=== PATIENT | male | born 1995 | race African-American/Black ===

== ENCOUNTER 2020-04-12 22:39 | Inpatient (IN) | payer MEDICAID ==
[~2020-04-12] VITALS: Ht 170.2 cm; Wt 80.9 kg
[2020-04-12 23:56] LABS: BASOPHILS % (AUTO) 0.6 % (0.0-2.0); EOSINOPHILS % (AUTO) 5.7 % (1.0-6.0); HEMATOCRIT 42.6 % (41-53); HEMOGLOBIN 14.5 g/dL (13.5-17.5); LYMPHOCYTES # (AUTO) 2.1 K/uL (1.0-4.8); LYMPHOCYTES % (AUTO) 33.1 % (22.0-44.0); MEAN CORPUSCULAR HEMOGLOBIN 30.5 pg (26.0-34.0); MEAN CORPUSCULAR VOLUME 90 fL (80-100); MONOCYTES # (AUTO) 0.5 K/uL (0.1-1.0); MONOCYTES % (AUTO) 7.8 % (2.0-9.0); NEUTROPHILS # (AUTO) 3.3 K/uL (1.8-7.7); NEUTROPHILS % (AUTO) 52.8 % (40.0-70.0); PLATELET COUNT (AUTO) 375 K/uL (150-450); RED BLOOD CELL COUNT(AUTO) 4.74 MIL/uL (4.50-5.90); RED CELL DISTRIBUTION WIDTH 13.3 % (11.5-14.5)
[2020-04-13 00:12] LABS: ANION GAP 10 mmol/L (8-16); CALCIUM, TOTAL 9.3 mg/dL (8.8-10.5); CARBON DIOXIDE 27 mmol/L (22-29); CHLORIDE 103 mmol/L (98-107); CREATININE 0.97 mg/dL (0.60-1.30); GLOMERULAR FILTR. RATE CALC > 60 mL/min (>60); GLUCOSE,RANDOM 83 mg/dL (70-110); POTASSIUM 3.6 mmol/L (3.5-5.1); SODIUM SERUM 140 mmol/L (136-145); UREA NITROGEN, BLOOD 16 mg/dL (7-18)
[2020-04-13 00:17] LABS: ALANINE AMINOTRANSFERASE 22 U/L (12-78); ALKALINE PHOSPHATASE 56 U/L (46-116); ASPARTATE AMINOTRANSFERASE 21 U/L (15-37); BILIRUBIN,TOTAL 0.5 mg/dL (0.1-1.0); TOTAL PROTEIN, SERUM 7.8 g/dL (6.4-8.2)
[2020-04-13 02:07] LABS: COVID AG,FIA SOURCE NASOPHARYNGEAL
[2020-04-13 05:00] VITALS: BP 107/67
[2020-04-13] MEDS ORDERED: ZOLPIDEM TARTRATE 10 MG TABLET PO PRN (05:45)
[2020-04-13] MEDS ORDERED: HALOPERIDOL 5 MG TABLET PO PRN (05:45)
[2020-04-13] MEDS ORDERED: MAGNESIUM HYDROXIDE SUSPENSION 30 ML UDCUP PO PRN (07:45)
[2020-04-13] MEDS ORDERED: MAG HYDROX/AL HYDROX/SIMETH ES 30 ML SUSPENSION UDCUP PO PRN (07:45)
[2020-04-13] MEDS ORDERED: CloNIDine HCL 0.1 MG TABLET PO PRN (07:45)
[2020-04-13] MEDS ORDERED: ALBUTEROL SULFATE HFA 90 MCG/PUFF 8 GM INHALER IH PRN (07:45)
[2020-04-13] MEDS ORDERED: DOCUSATE SODIUM 100 MG CAPSULE PO PRN (07:45)
[2020-04-13] MEDS ORDERED: LOPERAMIDE HCL 2 MG CAPSULE PO PRN (07:45)
[2020-04-13] MEDS ORDERED: ACETAMINOPHEN 325 MG TABLET PO PRN (07:45)
[2020-04-13] MEDS ORDERED: GuaiFENesin/D-METHORPHAN [SUGAR-FREE] 200-20MG/10 ML SYRUP UDCUP PO PRN (07:45)
[2020-04-13] MEDS ORDERED: PETROLATUM,WHITE 28 GM JELLY TP PRN (07:45)
[2020-04-13] MEDS ORDERED: ONDANSETRON HCL 4 MG TABLET PO PRN (07:45)
[2020-04-13] MEDS ORDERED: NICOTINE 14 MG/24 HOUR PATCH TD PRN (07:45)
[2020-04-13 09:33] VITALS: BP 112/52
[2020-04-13] MEDS: BuPROPion HCL 150 MG SR TABLET PO SCH (12:54)
[2020-04-13] MEDS: QUEtiapine FUMARATE 200 MG TABLET PO SCH ×2 (12:55→20:54)
[2020-04-13 12:56] VITALS: BP 112/52
[2020-04-13 16:15] VITALS: BP 133/88
[2020-04-13 17:07] VITALS: BP 133/88
[2020-04-14 03:30] VITALS: BP 124/75
[2020-04-14] MEDS ORDERED: IBUPROFEN 400 MG TABLET PO PRN (07:30)
[2020-04-14] MEDS ORDERED: DOCUSATE SODIUM 100 MG CAPSULE PO PRN (07:30)
[2020-04-14] MEDS ORDERED: GuaiFENesin/D-METHORPHAN [SUGAR-FREE] 200-20MG/10 ML SYRUP UDCUP PO PRN (07:30)
[2020-04-14] MEDS ORDERED: PETROLATUM,WHITE 28 GM JELLY TP PRN (07:30)
[2020-04-14] MEDS ORDERED: MAG HYDROX/AL HYDROX/SIMETH ES 30 ML SUSPENSION UDCUP PO PRN (07:30)
[2020-04-14] MEDS ORDERED: ALBUTEROL SULFATE HFA 90 MCG/PUFF 8 GM INHALER IH PRN (07:30)
[2020-04-14] MEDS ORDERED: NICOTINE 14 MG/24 HOUR PATCH TD PRN (07:30)
[2020-04-14] MEDS ORDERED: ONDANSETRON HCL 4 MG TABLET PO PRN (07:30)
[2020-04-14] MEDS ORDERED: ACETAMINOPHEN 325 MG TABLET PO PRN (07:30)
[2020-04-14] MEDS ORDERED: LOPERAMIDE HCL 2 MG CAPSULE PO PRN (07:30)
[2020-04-14] MEDS ORDERED: CloNIDine HCL 0.1 MG TABLET PO PRN (07:30)
[2020-04-14] MEDS ORDERED: MAGNESIUM HYDROXIDE SUSPENSION 30 ML UDCUP PO PRN (07:30)
[2020-04-14 08:14] LABS: CHOL/HDL RATIO 2.5 (4.2-7.3)
[2020-04-14 08:39] VITALS: BP 124/58
[2020-04-14] MEDS: BuPROPion HCL 150 MG SR TABLET PO SCH (08:50)
[2020-04-14] MEDS: QUEtiapine FUMARATE 200 MG TABLET PO SCH ×2 (08:50→20:52)
[2020-04-14] MEDS: LORazepam 2 MG TABLET PO PRN ×2 (13:26→17:32)
[2020-04-14 18:54] VITALS: BP 104/58
[2020-04-14 20:00] VITALS: BP 102/63
[2020-04-15 02:15] VITALS: BP 113/69
[2020-04-15] MEDS: LORazepam 2 MG TABLET PO PRN (02:20)
[2020-04-15 08:08] VITALS: BP 116/70
[2020-04-15] MEDS: BuPROPion HCL 150 MG SR TABLET PO SCH (09:00)
[2020-04-15] MEDS: QUEtiapine FUMARATE 200 MG TABLET PO SCH ×4 (09:00→21:03)
[2020-04-15] MEDS ORDERED: ChlorproMAZINE HCL 50 MG/2 ML AMP ONE (12:48)
[2020-04-15] MEDS ORDERED: LORazepam 2 MG/ML VIAL ONE (12:48)
[2020-04-15] MEDS ORDERED: DiphenhydrAMINE HCL 50 MG/ML VIAL ONE (12:50)
[2020-04-15] MEDS ORDERED: DiphenhydrAMINE HCL 50 MG/ML VIAL IM ONE (13:45)
[2020-04-15] MEDS ORDERED: ChlorproMAZINE HCL 50 MG/2 ML AMP IM ONE (13:45)
[2020-04-15] MEDS ORDERED: LORazepam 2 MG/ML VIAL IM ONE (13:45)
[2020-04-15] MEDS: IBUPROFEN 400 MG TABLET PO PRN (15:17)
[2020-04-15 16:00] VITALS: BP 110/72
[2020-04-15] MEDS: ONDANSETRON HCL 4 MG/2 ML VIAL IM PRN (21:31)
[2020-04-16] MEDS: IBUPROFEN 400 MG TABLET PO PRN ×2 (02:41→17:23)
[2020-04-16 08:27] VITALS: BP 126/73
[2020-04-16] MEDS: QUEtiapine FUMARATE 200 MG TABLET PO SCH ×2 (08:53→20:44)
[2020-04-16] MEDS: BuPROPion HCL 150 MG SR TABLET PO SCH (08:53)
[2020-04-16] MEDS: LORazepam 2 MG TABLET PO PRN ×2 (11:08→18:59)
[2020-04-16] MEDS: ONDANSETRON HCL 4 MG/2 ML VIAL IM PRN (11:37)
[2020-04-16 16:27] VITALS: BP 104/64
[2020-04-17] MEDS: QUEtiapine FUMARATE 200 MG TABLET PO SCH (09:09)
[2020-04-17] MEDS: BuPROPion HCL 150 MG SR TABLET PO SCH (09:09)
[2020-04-17] MEDS: LORazepam 2 MG TABLET PO PRN (09:20)
[2020-04-17 14:26] VITALS: BP 96/55
[2020-04-17 16:12] VITALS: BP 102/72
[2020-04-17] MEDS ORDERED: BUPR150SR PO (17:35)
[2020-04-17] MEDS ORDERED: QUET200T PO ×2 (17:35)
== END 2020-04-17 18:00 | disposition home or self-care (01) | DRG 750 ==
LOC: EMS 22:39 → B3A 04-13 02:30
PROVIDERS: ADMIT Psychiatry & Neurology Child & Adolescent Psychiatry; ATTEND Psychiatry & Neurology Child & Adolescent Psychiatry
DX: F25.1 Schizoaffective disorder, depressive type (principal); R45.851 Suicidal ideations; F41.9 Anxiety disorder, unspecified; I95.9 Hypotension, unspecified; F17.200 Nicotine dependence, unspecified, uncomplicated; Z20.828 Contact with and (suspected) exposure to other viral communicable diseases
CPT/HCPCS: 87426; G0480; J1200; J2060; J2405; J3230

== ENCOUNTER 2020-04-21 12:13 | Inpatient (IN) | payer MEDICAID ==
[~2020-04-21] VITALS: Ht 170.2 cm; Wt 76.8 kg
[~2020-04-21 12:13] MED LIST: BUPR150SR PO; QUET200T PO
[2020-04-21] MEDS ORDERED: ZOLPIDEM TARTRATE 10 MG TABLET PO PRN (19:00)
[2020-04-21] MEDS ORDERED: HALOPERIDOL 5 MG TABLET PO PRN (19:00)
[2020-04-21 19:49] VITALS: BP 108/64
[2020-04-21 20:05] VITALS: BP 112/59
[2020-04-21] MEDS: QUEtiapine FUMARATE 100 MG TABLET PO PRN (20:18)
[2020-04-21] MEDS: LORazepam 2 MG TABLET PO PRN (20:18)
[2020-04-21] MEDS ORDERED: INFLUENZA VIRUS VACCINE QVS 2020-21 (6MO+)/PF 60 MCG/0.5 ML SYRINGE IM ONE (20:30)
[2020-04-22 01:26] VITALS: BP 121/65
[2020-04-22] MEDS ORDERED: CloNIDine HCL 0.1 MG TABLET PO PRN (08:00)
[2020-04-22] MEDS ORDERED: DOCUSATE SODIUM 100 MG CAPSULE PO PRN (08:00)
[2020-04-22] MEDS ORDERED: IBUPROFEN 400 MG TABLET PO PRN (08:00)
[2020-04-22] MEDS ORDERED: MAG HYDROX/AL HYDROX/SIMETH ES 30 ML SUSPENSION UDCUP PO PRN (08:00)
[2020-04-22] MEDS ORDERED: PETROLATUM,WHITE 28 GM JELLY TP PRN (08:00)
[2020-04-22] MEDS ORDERED: GuaiFENesin/D-METHORPHAN [SUGAR-FREE] 200-20MG/10 ML SYRUP UDCUP PO PRN (08:00)
[2020-04-22] MEDS ORDERED: MAGNESIUM HYDROXIDE SUSPENSION 30 ML UDCUP PO PRN (08:00)
[2020-04-22] MEDS ORDERED: ACETAMINOPHEN 325 MG TABLET PO PRN (08:00)
[2020-04-22] MEDS ORDERED: NICOTINE 14 MG/24 HOUR PATCH TD PRN ×2 (08:00→16:45)
[2020-04-22] MEDS ORDERED: ALBUTEROL SULFATE HFA 90 MCG/PUFF 8 GM INHALER IH PRN (08:00)
[2020-04-22 08:11] LABS: BASOPHILS % (AUTO) 0.2 % (0.0-2.0); EOSINOPHILS % (AUTO) 5.4 % (1.0-6.0); HEMATOCRIT 39.3 % (41-53); HEMOGLOBIN 13.1 g/dL (13.5-17.5); LYMPHOCYTES # (AUTO) 1.1 K/uL (1.0-4.8); LYMPHOCYTES % (AUTO) 20.1 % (22.0-44.0); MEAN CORPUSCULAR HEMOGLOBIN 29.9 pg (26.0-34.0); MEAN CORPUSCULAR HGB CONC 33.5 G/dL (31.0-37.0); MEAN CORPUSCULAR VOLUME 89 fL (80-100); MONOCYTES # (AUTO) 0.6 K/uL (0.1-1.0); MONOCYTES % (AUTO) 11.7 % (2.0-9.0); NEUTROPHILS # (AUTO) 3.3 K/uL (1.8-7.7); NEUTROPHILS % (AUTO) 62.6 % (40.0-70.0); PLATELET COUNT (AUTO) 375 K/uL (150-450); RED BLOOD CELL COUNT(AUTO) 4.39 MIL/uL (4.50-5.90); RED CELL DISTRIBUTION WIDTH 12.9 % (11.5-14.5)
[2020-04-22 08:21] VITALS: BP 93/48
[2020-04-22] MEDS: NICOTINE 7 MG/24 HOUR PATCH TD SCH (08:24)
[2020-04-22] MEDS: LORazepam 2 MG TABLET PO PRN ×2 (08:24→18:23)
[2020-04-22 08:31] LABS: ALANINE AMINOTRANSFERASE 54 U/L (12-78); ALBUMIN 3.1 g/dL (3.4-5.0); ALKALINE PHOSPHATASE 62 U/L (46-116); ANION GAP 6 mmol/L (8-16); ASPARTATE AMINOTRANSFERASE 15 U/L (15-37); BILIRUBIN,TOTAL 0.3 mg/dL (0.1-1.0); CALCIUM, TOTAL 8.6 mg/dL (8.8-10.5); CARBON DIOXIDE 27 mmol/L (22-29); CHLORIDE 108 mmol/L (98-107); CHOL/HDL RATIO 3.2 (4.2-7.3); CHOLESTEROL 93 mg/dL (131-200); CREATININE 0.92 mg/dL (0.60-1.30); FREE T4 (FREE THYROXINE) 0.95 ng/dL (0.76-1.46); GLOMERULAR FILTR. RATE CALC > 60 mL/min (>60); GLUCOSE,RANDOM 82 mg/dL (70-110); HDL CHOLESTEROL 29 mg/dL (40-60); LDL CHOL (CALC.) 49 mg/dL (0-130); POTASSIUM 3.8 mmol/L (3.5-5.1); SODIUM SERUM 141 mmol/L (136-145); THYROID STIMULATING HORMONE 0.42 uIU/mL (0.36-3.74); TOTAL PROTEIN, SERUM 6.5 g/dL (6.4-8.2); TRIGLYCERIDES 77 mg/dL (15-150); UREA NITROGEN, BLOOD 13 mg/dL (7-18)
[2020-04-22 16:24] VITALS: BP 121/64
[2020-04-22] MEDS: QUEtiapine FUMARATE 100 MG TABLET PO PRN (18:23)
[2020-04-22] MEDS: QUEtiapine FUMARATE 200 MG TABLET PO SCH (20:40)
[2020-04-23 05:51] VITALS: BP 101/59
[2020-04-23 08:13] VITALS: BP 133/63
[2020-04-23] MEDS: BuPROPion HCL 150 MG SR TABLET PO SCH (09:17)
[2020-04-23] MEDS: QUEtiapine FUMARATE 200 MG TABLET PO SCH ×2 (09:18→21:09)
[2020-04-23] MEDS: NICOTINE 7 MG/24 HOUR PATCH TD SCH (09:18)
[2020-04-23] MEDS ORDERED: ChlorproMAZINE HCL 50 MG/2 ML AMP ONE (12:23)
[2020-04-23] MEDS ORDERED: LORazepam 2 MG/ML VIAL ONE (12:23)
[2020-04-23] MEDS ORDERED: LORazepam 2 MG/ML VIAL IM ONE (12:30)
[2020-04-23] MEDS ORDERED: ChlorproMAZINE HCL 50 MG/2 ML AMP IM ONE (12:30)
[2020-04-23 16:21] VITALS: BP 126/68
[2020-04-24 01:38] VITALS: BP 120/70
[2020-04-24] MEDS: BuPROPion HCL 150 MG SR TABLET PO SCH (08:48)
[2020-04-24] MEDS: QUEtiapine FUMARATE 200 MG TABLET PO SCH ×2 (08:48→20:39)
[2020-04-24] MEDS: NICOTINE 7 MG/24 HOUR PATCH TD SCH (08:48)
[2020-04-24 16:04] VITALS: BP 102/62
[2020-04-24] MEDS: LORazepam 2 MG TABLET PO PRN (16:41)
[2020-04-25 06:35] VITALS: BP 110/65
[2020-04-25 08:44] VITALS: BP 102/60
[2020-04-25] MEDS: BuPROPion HCL 150 MG SR TABLET PO SCH (09:01)
[2020-04-25] MEDS: NICOTINE 7 MG/24 HOUR PATCH TD SCH (09:01)
[2020-04-25] MEDS: QUEtiapine FUMARATE 200 MG TABLET PO SCH ×2 (09:01→20:12)
[2020-04-25 16:13] VITALS: BP 102/58
[2020-04-25] MEDS: LORazepam 2 MG TABLET PO PRN (16:37)
[2020-04-26 06:27] VITALS: BP 112/68
[2020-04-26 08:07] VITALS: BP 116/71
[2020-04-26] MEDS: NICOTINE 7 MG/24 HOUR PATCH TD SCH (08:09)
[2020-04-26] MEDS: BuPROPion HCL 150 MG SR TABLET PO SCH (08:09)
[2020-04-26] MEDS: QUEtiapine FUMARATE 200 MG TABLET PO SCH (08:09)
== END 2020-04-26 12:10 | disposition home or self-care (01) | DRG 751 ==
LOC: B3A 19:18
PROVIDERS: ATTEND Psychiatry & Neurology Child & Adolescent Psychiatry
DX: F33.3 Major depressive disorder, recurrent, severe with psychotic symptoms (principal); D64.9 Anemia, unspecified; I95.9 Hypotension, unspecified; F12.10 Cannabis abuse, uncomplicated; Z28.21 Immunization not carried out because of patient refusal; Z79.899 Other long term (current) drug therapy; Z88.8 Allergy status to other drugs, medicaments and biological substances
CPT/HCPCS: 84439; 84443; 87081; 90686; 97112; J2060; J3230